=== PATIENT | female | born 1990 | race Caucasian/White ===

== ENCOUNTER 2025-04-16 10:09 | Emergency (ER) | payer BC, SELFPAY ==
[2025-04-16 10:40] VITALS: BP 167/95
[2025-04-16 11:02] LABS: Hematocrit 42.3 % (37.0-47.0); Hemoglobin 14.1 g/dL (12.0-16.0); Mean Corp Hgb Conc. 33.3 g/dL (33.0-37.0); Mean Corpuscular Volume 83.1 fL (81.0-99.0); Nucleated Red Blood Cells % 0 %; Platelet Count 289 10^3/uL (130-400); Red Cell Dist. Width 12.6 % (11.5-14.5)
[2025-04-16 11:03] LABS: Urine Character Clear (Clear)
[2025-04-16 11:12] LABS: Urine Squamous Cell >30 /LPF (Few)
[2025-04-16 11:14] LABS: Urine Red Blood Cell 0-2 /HPF (0-2)
[2025-04-16 11:15] LABS: HCG, Serum Qualitative Screen Negative; Urine Urothelial Cell 0-2 /LPF (FEW)
[2025-04-16 11:19] LABS: ALT (SGPT) 18 U/L (0-35); AST (SGOT) 23 U/L (14-36); Albumin 4.6 g/dl (3.5-5.0); Alkaline Phosphatase 77 U/L (38-126); Blood Urea Nitrogen 12 mg/dl (7-17); Calcium 9.4 mg/dl (8.4-10.2); Carbon Dioxide 27 mmol/L (22-30); Chloride 104 mmol/L (98-107); Glucose 96 mg/dl (70-99); Potassium 4.3 mmol/L (3.5-5.1); Sodium 138 mmol/L (135-145); Total Protein 8.1 g/dl (6.3-8.2); eGFR > 60.00
--- NOTE | 2025-04-16 13:19 | ED.GENMED ---
History of Present Illness
General
Chief Complaint: Flank Pain
Time Seen by Provider: 04/16/25 11:32
History of Present Illness
History of Present Illness:
35-year-old female with past medical history of kidney stones, UTIs, renal atrophy who presents complaining of several days of right lower quadrant and right flank pain. Also developed neck stiffness this morning denies any associated symptoms such
as nausea vomiting, chest pain, shortness of breath. No fevers or chills. Normal bowel movements and urinating okay.
Past History
Past History
ED Past Medical History: Other (renal calc)
ED Past Surgical History:
Social History
Tobacco: Non-smoker
Personal: Single
Living: with family
Family History
Family History: Negative Early CAD
Phy Exam
General Physical Exam
General Presentation: well appearing and no apparent distress
General Skin: warm and dry
General Habitus: normal
General Mental: alert
General Hydration: appears well hydrated
ENT Exam
ENT Exam: EOMI, pharynx normal, neck supple and normocephalic
Eye Exam
Eye Exam: PERRL, cornea clear and conjunctiva normal
Cardiovascular Exam
Cardiovascular Exam: regular rate/rhythm, no edema, no murmur and normal peripheral pulses
Pulmonary Exam
Pulmonary Exam: lungs clear, no respiratory distress, no rales, no crackles, no rhonchi, no stridor, no wheezing and no cough
Gastrointestinal Exam
Gastrointestinal Exam: normal bowel sounds, non tender, soft, no organomegaly, no pulsatile mass and non distended
Palpation: right lower quadrant: Mild tenderness
Neurological Exam
Neurological Exam: alert, oriented x3, no motor deficits and speech normal
Musculoskeletal Exam
Musculoskeletal Exam: full ROM and no edema
Skin Exam
Skin Exam: normal color, warm/dry, no rash and no petechia
Psychiatric Exam
Psychiatric Exam: normal mood/affect
Course
Orders/Labs/Results
Orders:
Orders
04/16/25 10:40
Test Result ONCE
04/16/25 10:49
CMP [Comprehensive Metabolic Panel] Urgent
Complete Blood Count/With Diff Urgent
HCG, Serum Qualitative Screen Urgent
Urinalysis Reflex To Culture Urgent
Date Specimen was Collected: 04/16/25
Time Specimen was Collected: 10:40
Urine Microscopic Reflex Cult Urgent
Urine Culture Urgent
DANILO Source: U
Specimen Description:
Date Specimen was Collected: 04/16/25
Time Specimen was Collected: 10:40
04/16/25 11:59
CT Abd/pelvis W Iv Cont Urgent
Comment:
Reason For Exam: flank pain and RLQ pain
Abnormal Lab Results
04/16/25
10:49
Absolute Lymphs (auto) 1.0 L 10^3/uL
(1.2-3.4)
Neutrophils % 77.3 H %
(42.2-75.2)
Lymphocytes % 15.6 L %
(20.5-51.1)
Leukocyte Esterase Rfl 1+ A
(Negative)
Urine WBC (Reflex) 11-15 A /HPF
(0-5)
Urine Bacteria (Reflex) Moderate A
(Negative)
Urine Albumin (Reflex) 1+ A
(Neg - Trace)
04/16/25 10:49
04/16/25 11:59
Vital Signs
Initial and Last Documented VS:
Initial Vital Signs
Temp Pulse Resp Pulse Ox
37.0 C 83 18 99
04/16/25 10:35 04/16/25 10:35 04/16/25 10:35 04/16/25 10:35
Last Documented Vital Signs
Temp Pulse Resp BP Pulse Ox
37.0 C 77 16 130/75 99
04/16/25 10:35 04/16/25 14:14 04/16/25 14:14 04/16/25 14:17 04/16/25 14:38
MDM/Problems Addressed
Differential Diagnosis Includes:
CBC and BMP both within normal limits. UA obtained and negative for any obvious infection. CT scan with IV contrast obtained shows possible cystitis. No appendicitis or bowel obstruction. Discussed findings with patient who would like to be
treated with a course of antibiotics as she is prone to urinary tract infections. Given her CT scan findings we will prescribe a short course of Keflex. She should follow-up with her primary care physician if things do not improve in the next
several days. Her cervical pain is likely related to a muscular strain from trying a new pillow at night. Ulysses sent to her pharmacy
*Pulse Oximetry
SaO2: 99
Oxygen Mode of Delivery: Room air
Patient hypoxic: no
*Critical Care Note
Total Time (30-74mins, 75-104mins- exclusive of procedures): Not Applicable
ED Attending Note
-
Portions of this chart may have been created with voice recognition software.� Occasional wrong word or��sound alike� substitutions may have occurred due to the inherent limitations of voice recognition software.
Discharge Plan
Departure
Patient Disposition: Home (Routine Discharge)
Date of Disposition: 04/16/25
Time of Disposition: 14:10
Patient with high blood pressure during this ER visit?: No
Discharge Problem:
Cystitis, Cervical muscle strain
Instructions: Urinary tract infection in adults - ED (DC)
Prescriptions:
New
nitrofurantoin monohyd/m-cryst [Macrobid] 100 mg capsule
100 mg PO BID 5 Days Qty: 10 0RF
methocarbamol 500 mg tablet
500 mg PO TID Qty: 14 0RF
No Action
.Generic Lexapro
20 mg PO DAILY
dextroamphetamine-amphetamine 15 MG tablet
15 mg PO BID
norgestimate-ethinyl estradiol [Ortho Tri-Cyclen (28)] 0.18/0.215/0.25 mg-35 mcg (28) tablet
1 tab PO
cefdinir [Omnicef] 300 MG capsule
300 mg PO Q12H Qty: 10 0RF
Referrals:
Yomi Willett MD [Family Provider, [facility]]
Activity Restrictions/Additional Instructions:
CT scan here was negative for any appendicitis or bowel obstruction. Small cystitis was seen on CT scan. Urine dip was negative for any occult infection. However given your symptoms and CT scan findings we will prescribe course of antibiotics.
If this does not improve your symptoms please follow-up with your primary care physician. In regards to your neck pain it is likely a muscular strain and muscle relaxers have been also sent to your pharmacy.
Interventions
Interventions:
*Risk Screen - Suicide Last Done: 04/16/25 10:35
*General Assessment Last Done: 04/16/25 12:53
*Neglect/Abuse Screening Last Done: 04/16/25 12:53
*ED COVID-19 Vaccine History Last Done: 04/16/25 12:53
*ED Influenza Vaccine History Last Done: 04/16/25 12:53
[facility] Fall Risk Assessment Tool Last Done: 04/16/25 11:26
*Nursing Disposition Last Done: 04/16/25 14:18
PY-Okbydj-Lquptqjhzf Assessment Last Done: 04/16/25 12:10
ED-Female Genitourinary Assessment Last Done: 04/16/25 12:10
Discharge Date and Time
Discharge Date/Time: 04/16/25 14:23
Print Language: PALESTINIAN
[2025-04-16 14:17] VITALS: BP 130/75
== END 2025-04-16 14:23 | disposition home or self-care (01) ==
LOC: EMR 10:09
PROVIDERS: EMERGENCY PHYSICIAN Student in an Organized Health Care Education/Training Program; FAMILY PHYSICIAN Family Medicine
DX: N30.90 Cystitis, unspecified without hematuria (principal); S16.1XXA Strain of muscle, fascia and tendon at neck level, initial encounter; X58.XXXA Exposure to other specified factors, initial encounter; N26.1 Atrophy of kidney (terminal); Z87.442 Personal history of urinary calculi
CPT/HCPCS: 99284; 74177; 80053; 81003; 81015; 84703; 85025; 87086; Q9967